=== PATIENT | male | born 1955 | race Caucasian/White ===

== ENCOUNTER 2022-07-17 16:21 | Emergency (ER) | payer SELFPAY ==
[~2022-07-17] VITALS: Ht 182.9 cm; Wt 82.0 kg
[2022-07-17 17:52] LABS: BASOPHILS % 1.1 % (0.0-2.0); EOSINOPHILS % 0.3 % (0.0-5.0); HEMATOCRIT. 44.1 % (42.0-52.0); HEMOGLOBIN. 14.6 g/dL (14.0-18.0); LYMPHOCYTES % 18.4 % (20.0-50.0); MEAN CORPUSCULAR HEMOGLOBIN 31.2 pg (28.0-32.0); MEAN PLATELET VOLUME 9.7 fl (7.4-10.4); MONOCYTES % 4.5 % (2.0-8.0); NEUTROPHILS % 75.7 % (40.0-76.0); PLATELET 277 x1000/uL (130-400); RED BLOOD CELL COUNT 4.69 mill/uL (4.7-6.1); RED CELL DISTRIBUTION WIDTH 14.2 % (11.6-14.6)
[2022-07-17 17:53] LABS: CHLORIDE 107 mEq/L (98-107)
[2022-07-17 18:02] LABS: ETHANOL BLOOD 282 mg/dL
[2022-07-17] MEDS: DEXTROSE 50% WATER 50ML SYRINGE IV NR ×2 (18:38→19:48)
[2022-07-17] MEDS ORDERED: SODIUM CHLORIDE 0.9% 1,000 ML IV ONE (19:30)
[2022-07-17 19:46] VITALS: BP 133/76
== END 2022-07-17 21:30 | disposition home or self-care (01) ==
LOC: ER 16:21
DX: R07.89 Other chest pain (principal); F10.129 Alcohol abuse with intoxication, unspecified; E11.9 Type 2 diabetes mellitus without complications; I10 Essential (primary) hypertension; Z85.01 Personal history of malignant neoplasm of esophagus; Y90.8 Blood alcohol level of 240 mg/100 ml or more
CPT/HCPCS: 36415; 71045; 80053; 80320; 82962; 84484; 85025; 93005; 96374; 99285; Z7610; G0480

== ENCOUNTER 2022-07-18 00:40 | Inpatient (IN) | payer SELFPAY ==
[~2022-07-18] VITALS: Ht 182.9 cm; Wt 83.5 kg
[2022-07-18] MEDS ORDERED: ACETAMINOPHEN 325MG TABLET PO ONE (14:00)
[2022-07-18] MEDS ORDERED: ASPIRIN 325MG EC TABLET PO ONE (14:00)
[2022-07-18 16:56] LABS: BASOPHILS % 0.6 % (0.0-2.0); EOSINOPHILS % 0.4 % (0.0-5.0); HEMATOCRIT. 43.9 % (42.0-52.0); HEMOGLOBIN. 14.5 g/dL (14.0-18.0); LYMPHOCYTES % 11.3 % (20.0-50.0); MEAN CORPUSCULAR HEMOGLOBIN 31.1 pg (28.0-32.0); MEAN PLATELET VOLUME 9.4 fl (7.4-10.4); MONOCYTES % 7.6 % (2.0-8.0); NEUTROPHILS % 80.1 % (40.0-76.0); PLATELET 234 x1000/uL (130-400); RED BLOOD CELL COUNT 4.67 mill/uL (4.7-6.1); RED CELL DISTRIBUTION WIDTH 14.2 % (11.6-14.6)
[2022-07-18 17:03] LABS: CHLORIDE 104 mEq/L (98-107)
[2022-07-18 18:29] LABS: *AMPHETAMINES SCREEN URINE NEGATIVE (NEGATIVE); *BARBITURATES SCREEN URINE NEGATIVE (NEGATIVE); *BENZODIAZEPINES SCREEN URINE NEGATIVE (NEGATIVE); *COCAINE SCREEN URINE NEGATIVE (NEGATIVE); CANNABINOID URINE SCREEN NEGATIVE (NEGATIVE); METHADONE URINE SCREEN NEGATIVE (NEGATIVE); OPIATES URINE SCREEN NEGATIVE (NEGATIVE); PHENCYCLIDINE URINE SCREEN NEGATIVE (NEGATIVE)
[2022-07-18] MEDS ORDERED: DOCUSATE SODIUM 100MG CAPSULE PO PRN (19:30)
[2022-07-18] MEDS ORDERED: MAGNESIUM/ALUMINUM HYDROXIDE/SIMETHICONE 30ML UDC PO PRN (19:30)
[2022-07-18] MEDS ORDERED: ONDANSETRON HCL 4MG/2ML INJ IV PRN (19:30)
[2022-07-18] MEDS ORDERED: TRAMADOL 50MG TABLET PO PRN (19:30)
[2022-07-18] MEDS ORDERED: ACETAMINOPHEN 325MG TABLET PO PRN (19:30)
[2022-07-18] MEDS ORDERED: GUAIFENESIN 200MG/10ML SUGAR FREE UDC PO PRN (19:30)
[2022-07-18] MEDS ORDERED: CLONIDINE 0.1MG TABLET PO PRN (19:30)
[2022-07-18] MEDS ORDERED: NALOXONE HCL 0.4MG/ML VIAL IV PRN (19:45)
[2022-07-18 20:00] VITALS: BP 153/96
[2022-07-18] MEDS ORDERED: ENOXAPARIN 40MG/0.4ML SYR SUBCUT SCH (20:00)
[2022-07-18 20:24] VITALS: BP 156/90
[2022-07-18] MEDS: AMLODIPINE 10MG TABLET PO SCH (21:19)
[2022-07-19] VITALS: BP 121/64
[2022-07-19 04:00] VITALS: BP 124/59
[2022-07-19 05:42] LABS: BASOPHILS % 0.7 % (0.0-2.0); EOSINOPHILS % 1.9 % (0.0-5.0); HEMATOCRIT. 41.8 % (42.0-52.0); HEMOGLOBIN. 14.1 g/dL (14.0-18.0); LYMPHOCYTES % 13.9 % (20.0-50.0); MEAN CORPUSCULAR HEMOGLOBIN 31.3 pg (28.0-32.0); MEAN CORPUSCULAR VOLUME 92.9 fL (80.0-94.0); MEAN PLATELET VOLUME 9.5 fl (7.4-10.4); MONOCYTES % 8.8 % (2.0-8.0); NEUTROPHILS % 74.7 % (40.0-76.0); PLATELET 215 x1000/uL (130-400); RED CELL DISTRIBUTION WIDTH 14.1 % (11.6-14.6)
[2022-07-19 08:00] VITALS: BP 142/81
[2022-07-19 09:23] LABS: CHLORIDE 103 mEq/L (98-107); HDL CHOLESTEROL 90 mg/dL (40-59); LDL CHOLESTEROL 32 mg/dL (5-100)
[2022-07-19] MEDS: AMLODIPINE 10MG TABLET PO SCH (10:13)
[2022-07-19 12:00] VITALS: BP 110/78
[2022-07-19] MEDS ORDERED: ENOXAPARIN 80MG/0.8ML SYR SUBCUT NR (12:30)
[2022-07-19 13:50] LABS: INR 1.2; PROTHROMBIN TIME 12.4 sec (9.6-11.0)
[2022-07-19] MEDS: DILTIAZEM HCL 90MG TABLET PO SCH ×2 (14:14→17:08)
[2022-07-19 16:00] VITALS: BP 96/61
[2022-07-19 20:00] VITALS: BP 102/61
[2022-07-20 04:00] VITALS: BP 113/66
[2022-07-20] MEDS: DILTIAZEM HCL 90MG TABLET PO SCH ×4 (05:34→18:33)
[2022-07-20 07:35] LABS: BASOPHILS % 0.8 % (0.0-2.0); EOSINOPHILS % 2.1 % (0.0-5.0); HEMATOCRIT. 43.5 % (42.0-52.0); HEMOGLOBIN. 14.5 g/dL (14.0-18.0); MEAN CORPUSCULAR HEMOGLOBIN 31.2 pg (28.0-32.0); MEAN CORPUSCULAR VOLUME 93.5 fL (80.0-94.0); MONOCYTES % 8.8 % (2.0-8.0); NEUTROPHILS % 66.3 % (40.0-76.0); PLATELET 206 x1000/uL (130-400); RED BLOOD CELL COUNT 4.65 mill/uL (4.7-6.1); RED CELL DISTRIBUTION WIDTH 14.2 % (11.6-14.6)
[2022-07-20 07:46] LABS: CHLORIDE 101 mEq/L (98-107)
[2022-07-20 08:00] VITALS: BP 120/75
[2022-07-20] MEDS ORDERED: POTASSIUM CHLORIDE 20MEQ TABLET SR PO NR (09:15)
[2022-07-20] MEDS: ENOXAPARIN 80MG/0.8ML SYR SUBCUT SCH ×3 (09:25→21:00)
[2022-07-20] MEDS ORDERED: METOPROLOL SUCCINATE 50MG ER TABLET PO SCH (10:00)
[2022-07-20] MEDS: METOPROLOL TARTRATE 25MG TABLET PO SCH ×2 (10:26→21:03)
[2022-07-20] MEDS ORDERED: DEXTROSE 50% WATER 50ML SYRINGE IV PRN (10:30)
[2022-07-20 12:00] VITALS: BP 114/74
[2022-07-20] MEDS: BLOOD SUGAR DIAGNOSTIC STRIP TEST SCH ×3 (12:02→21:00)
[2022-07-20] MEDS: INSULIN LISPRO 100 UNITS/ML SUBCUT SCH ×3 (12:55→21:00)
[2022-07-20 16:00] VITALS: BP 96/63
[2022-07-20 20:00] VITALS: BP 113/69
[2022-07-21] VITALS (7 sets, daily range): BP systolic 95–135; BP diastolic 63–75
[2022-07-21] MEDS: DILTIAZEM HCL 90MG TABLET PO SCH ×4 (06:00→18:27)
[2022-07-21] MEDS: BLOOD SUGAR DIAGNOSTIC STRIP TEST SCH ×4 (06:00→21:00)
[2022-07-21 06:37] LABS: BASOPHILS % 0.9 % (0.0-2.0); EOSINOPHILS % 2.8 % (0.0-5.0); HEMATOCRIT. 39.8 % (42.0-52.0); HEMOGLOBIN. 13.4 g/dL (14.0-18.0); LYMPHOCYTES % 23.2 % (20.0-50.0); MEAN CORPUSCULAR HEMOGLOBIN 31.3 pg (28.0-32.0); MEAN CORPUSCULAR VOLUME 92.9 fL (80.0-94.0); MEAN PLATELET VOLUME 9.4 fl (7.4-10.4); MONOCYTES % 9.9 % (2.0-8.0); NEUTROPHILS % 63.2 % (40.0-76.0); PLATELET 176 x1000/uL (130-400); RED BLOOD CELL COUNT 4.29 mill/uL (4.7-6.1); RED CELL DISTRIBUTION WIDTH 14.1 % (11.6-14.6)
[2022-07-21 07:20] LABS: CHLORIDE 102 mEq/L (98-107)
[2022-07-21] MEDS: METOPROLOL TARTRATE 25MG TABLET PO SCH ×2 (09:00→21:00)
[2022-07-21] MEDS: ENOXAPARIN 80MG/0.8ML SYR SUBCUT SCH ×2 (09:07→22:42)
[2022-07-21] MEDS: INSULIN LISPRO 100 UNITS/ML SUBCUT SCH ×4 (09:18→21:00)
[2022-07-21] MEDS ORDERED: POTASSIUM CHLORIDE 20MEQ TABLET SR PO SCH (09:45)
[2022-07-22] VITALS: BP 119/75
[2022-07-22] MEDS: DILTIAZEM HCL 90MG TABLET PO SCH ×2 (01:08→06:42)
[2022-07-22 04:00] VITALS: BP 119/69
[2022-07-22 05:54] LABS: BASOPHILS % 0.9 % (0.0-2.0); EOSINOPHILS % 2.6 % (0.0-5.0); HEMATOCRIT. 46.5 % (42.0-52.0); HEMOGLOBIN. 15.8 g/dL (14.0-18.0); LYMPHOCYTES % 29.7 % (20.0-50.0); MEAN CORPUSCULAR HEMOGLOBIN 31.9 pg (28.0-32.0); MEAN CORPUSCULAR VOLUME 93.8 fL (80.0-94.0); MEAN PLATELET VOLUME 9.7 fl (7.4-10.4); MONOCYTES % 7.6 % (2.0-8.0); NEUTROPHILS % 59.2 % (40.0-76.0); PLATELET 202 x1000/uL (130-400); RED BLOOD CELL COUNT 4.96 mill/uL (4.7-6.1); RED CELL DISTRIBUTION WIDTH 14.1 % (11.6-14.6)
[2022-07-22] MEDS: BLOOD SUGAR DIAGNOSTIC STRIP TEST SCH (06:42)
[2022-07-22 08:00] VITALS: BP 120/72
[2022-07-22] MEDS: ENOXAPARIN 80MG/0.8ML SYR SUBCUT SCH (08:01)
[2022-07-22] MEDS: METOPROLOL TARTRATE 25MG TABLET PO SCH (08:01)
[2022-07-22] MEDS: INSULIN LISPRO 100 UNITS/ML SUBCUT SCH (08:10)
[2022-07-22 08:38] LABS: CHLORIDE 101 mEq/L (98-107)
[2022-07-22 09:13] VITALS: BP 120/78
== END 2022-07-22 10:32 | disposition home or self-care (01) | DRG 203 ==
LOC: ER 00:40 → 7WST 17:37 → ENRESERV 17:47 → EDBEDREQTM 17:53 → EDBEDREQ 17:53
PROVIDERS: ADMIT Hospitalist; ATTEND Hospitalist
PROC: 0JBR0ZZ Excision of Left Foot Subcutaneous Tissue and Fascia, Open Approach (ICD-10-PCS; principal; 2022-07-19)
PROC: 0JBQ0ZZ Excision of Right Foot Subcutaneous Tissue and Fascia, Open Approach (ICD-10-PCS; 2022-07-19)
DX: M94.0 Chondrocostal junction syndrome [Tietze] (principal); I50.20 Unspecified systolic (congestive) heart failure; I11.0 Hypertensive heart disease with heart failure; L89.893 Pressure ulcer of other site, stage 3; I47.1 Supraventricular tachycardia; E11.9 Type 2 diabetes mellitus without complications; I25.10 Atherosclerotic heart disease of native coronary artery without angina pectoris; I25.5 Ischemic cardiomyopathy; I44.7 Left bundle-branch block, unspecified; I48.0 Paroxysmal atrial fibrillation; I87.8 Other specified disorders of veins; M21.969 Unspecified acquired deformity of unspecified lower leg; F32.A Depression, unspecified; F10.10 Alcohol abuse, uncomplicated; Z79.01 Long term (current) use of anticoagulants; Z90.49 Acquired absence of other specified parts of digestive tract; Z82.3 Family history of stroke; Z91.14 Patient's other noncompliance with medication regimen; Z85.01 Personal history of malignant neoplasm of esophagus; Z82.49 Family history of ischemic heart disease and other diseases of the circulatory system
CPT/HCPCS: 36415; 71045; 80048; 80053; 80061; 80305; 80320; 82962; 83036; 83735; 83880; 84484; 85025; 93005; 93306; 93923; 93970; 99285; J1650; J1815; G0480